=== PATIENT | female | born 1945 | race Caucasian/White ===

== ENCOUNTER 2018-01-28 08:39 | Emergency (ER) | payer MEDICARE, BC ==
[2018-01-28 09:57] LABS: VENOUS BLOOD BASE EXCESS -0.8 mmol/L; VENOUS BLOOD HCO3 26.2 mmol/L (20-32); VENOUS BLOOD PCO2 53.2 mmHg (35-63); VENOUS BLOOD PH 7.31 (7.30-7.42)
[2018-01-28 09:59] LABS: HEMATOCRIT 38.4 % (36.0-47.0); HEMOGLOBIN 12.7 g/dL (12.0-15.5); MEAN CORPUSCULAR HEMOGLOBIN 29.4 pg (27.0-33.4); MEAN CORPUSCULAR VOLUME 89 fl (80-97); RED BLOOD COUNT 4.31 10^6/uL (3.72-5.28); WHITE BLOOD COUNT 9.2 10^3/uL (4.0-10.5)
[2018-01-28 10:00] LABS: ABSOLUTE LYMPHOCYTES (AUTO) 0.7 10^3/uL (0.5-4.7); ABSOLUTE MONOCYTES (AUTO) 0.5 10^3/uL (0.1-1.4); ABSOLUTE NEUT (AUTO) 7.9 10^3/uL (1.7-8.2); BASOPHILS % (AUTO) 0.4 % (0-2); EOSINOPHILS % (AUTO) 0.2 % (0-6); LYMPHOCYTES % (AUTO) 7.2 % (13-45); MONOCYTES % (AUTO) 5.6 % (3-13); PLATELET COUNT 291 10^3/uL (150-450); RED CELL DISTRIBUTION WIDTH 14.1 % (11.5-14.0); SEGMENTED NEUTROPHILS % (AUTO) 86.6 % (42-78); TOTAL CELLS COUNTED % (AUTO) 100 %
[2018-01-28 10:16] LABS: ALANINE AMINOTRANSFERASE 30 U/L (9-52); ALBUMIN 4.2 g/dL (3.5-5.0); ALKALINE PHOSPHATASE 126 U/L (38-126); ANION GAP 13 (5-19); ASPARTATE AMINO TRANSFERASE 23 U/L (14-36); BILIRUBIN,DIRECT 0.3 mg/dL (0.0-0.4); BILIRUBIN,TOTAL 0.8 mg/dL (0.2-1.3); BLOOD UREA NITROGEN 12 mg/dL (7-20); CALCIUM 9.1 mg/dL (8.4-10.2); CARBON DIOXIDE 26 mmol/L (22-30); CHLORIDE 108 mmol/L (98-107); CREATINE KINASE 102 U/L (30-135); GLUCOSE 131 mg/dL (75-110); POTASSIUM 4.6 mmol/L (3.6-5.0); SODIUM 146.5 mmol/L (137-145); TOTAL PROTEIN 7.6 g/dL (6.3-8.2)
[2018-01-28 10:28] LABS: CREATINE KINASE MB 2.03 ng/mL (<4.55); NT PRO BNP 451 pg/mL (5-900)
[2018-01-28 10:29] LABS: TROPONIN I < 0.012 ng/mL
[2018-01-28 10:56] LABS: APPEARANCE,URINE CLEAR; BILIRUBIN,URINE NEGATIVE (NEGATIVE); COLOR,URINE YELLOW; GLUCOSE, URINE NEGATIVE (NEGATIVE); KETONES,URINE NEGATIVE (NEGATIVE); LEUKOCYTE ESTERASE,URINE NEGATIVE (NEGATIVE); NITRITE,URINE NEGATIVE (NEGATIVE); PROTEIN,URINE 100 mg/dL (NEGATIVE); URINE SPECIFIC GRAVITY 1.009; UROBILINOGEN,URINE NEGATIVE mg/dL (<2.0)
--- NOTE | 2018-01-28 11:06 | RADIOLOGY REPORT (SQ) ---
EXAM DESCRIPTION: CTA CHEST COMPLETED DATE/TIME: 01/28/2018 10:50 am REASON FOR STUDY: SOB, PE protocol COMPARISON: None. TECHNIQUE: CT scan of the chest performed using helical scanning technique with dynamic intravenous contrast injection. Images reviewed with lung, soft tissue and bone windows. Reconstructed coronal and sagittal MPR images reviewed. Additional 3 dimensional post-processing performed to develop Maximal Intensity Projection images (MO P). All images stored on PACS. All CT scanners at this facility use dose modulation, iterative reconstruction, and/or weight based d osing when appropriate to reduce radiation dose to as low as reasonably achievable (ALARA). [facility]: Dose Right [facility]: CareDose [facility]: Dose Right [facility]: Teradose 4D [facility]: Pathogenetix CONTRAST TYPE AND DOSE: contrast/concentration: Isovue 370.00 mg/ml; Total Contrast Delivered: 81.0 ml; Total Saline Delivered: 85.8 ml Contrast bolus adequate for pulmonary arteries and aorta. RENAL FUNCTION: GFR > 60. RADIATION DOSE: CT Rad equipment meets quality standard of care and radiation dose reduction techniq ues were employed. CTDIvol: 13.2 - 32.1 mGy. DLP: 1141 mGy-cm. . LIMITATIONS: None. FINDINGS: LUNGS AND PLEURA: Mild hazy ground-glass opacities upper and lower lobes. Mild paraseptal emphysema. Small bilateral pleural effusions. Faint scattered subcentimeter nodules are also sugge sted, most numerous in the lower lobes, subpleural. Largest measure just under 7 mm. Several calcif ied nodules also noted. Mild dependent subsegmental atelectasis bilaterally. AORTA AND GREAT VESSELS: No aneurysm. Contrast bolus not optimized for the aorta. HEART: Marked coronary calcification. No pericardial effusion. PULMONARY ARTERIES: No emboli visualized in the main pulmonary arteries or the segmental branches. HILAR AND MEDIASTINAL STRUCTURES: Small mediastinal and hilar nodes, many of which are calcified. Co nsistent with previous granulomatous disease. HARDWARE: None in the chest. UPPER ABDOMEN: Calcified granulomas in the spleen. No upper abdominal mass. THYROID AND OTHER SOFT TISSUES: No masses. No adenopathy. BONES: Osteopenia and spondylosis. 3D MIPS: Confirm above findings. OTHER: No other significant finding. IMPRESSION: 1. No pulmonary embolus. 2. Suspect mild CHF. Bilateral effusions with hazy mild philip ma in the lungs. 3. Small nodules. Patient appears to have had previous granulomatous disease whic h may explain this. Surveillance followup imaging over time may prove helpful once the patient is no longer acutely ill. FLEISCHNER CRITERIA FOR FOLLOW-UP OF PULMONARY NODULES Incidentally detected new nodules in persons 35 or older. HIGH RISK: History of smoking or other known risk factors. 6-8mm multiple solid nodules: LOW RISK: CT 3-6 mo; then consider CT 18-24 mo. HIGH RISK: CT 3-6 mo; t hen CT 18-24 mo. COMMENT: Quality ID # [id number]: Final reports with documentation of one or more dose reduction techniques (e.g., Automated exposure control, adjustment of the mA and/or kV according to patient size, use of iterative reconstruction technique) TECHNICAL DOCUMENTATION: JOB ID: [id number] [employer] All Rights Reserved Reading location - IP/workstation name: [email or web address]
[2018-01-28] MEDS ORDERED: FUROSEMIDE INJ/PF 40 MG/4 ML SDV IV ONE (12:17)
--- NOTE | 2018-01-28 12:35 | ER Document Report ---
ED General - General Chief Complaint: Shortness Of Breath Stated Complaint: SHORTNESS OF BREATH Time Seen by Provider: 01/28/18 09:29 TRAVEL OUTSIDE OF THE [place] IN LAST 30 DAYS: No - HPI Notes: 73-year-old female presents to the ER complaining of difficulty breathing. States she has been having some exertional dyspnea over the last several days. She is visiting from [facility]. [place] on [place]. She states she has been more more short of breath especially walking up the stairs of the beach house. Says when she rests she feels fine. She also been eating like she has been on vacation. She has not been watching her diet. The patient complains of difficulty breathing no chest pain. Upon walking more than several steps he becomes very short of breath and has to rest and then has done fine. She denies any fever chills sore throat she has had a nonproductive cough she has noticed that her ankles have been swelling a little bit. She does not a history of CHF. However she has not been treated for this in a while. - Related Data Allergies/Adverse Reactions: Penicillins Allergy (Verified 01/28/18 08:45) Past Medical History - Social History Smoking Status: Former Smoker Frequency of alcohol use: None Drug Abuse: None Family History: None Patient has suicidal ideation: No Patient has homicidal ideation: No Renal/ Medical History: Denies: Hx Peritoneal Dialysis Review of Systems - Review of Systems Constitutional: denies: Chills, Fever Cardiovascular: Dyspnea, Edema. denies: Chest pain Respiratory: Cough, Short of breath. denies: Hurts to breathe, Hemoptysis, Wheezing Gastrointestinal: denies: Nausea, Vomiting Musculoskeletal: Ankle swelling -: Yes All other systems reviewed and negative Physical Exam - Vital signs Vitals: Temp Pulse Resp BP Pulse Ox 97.7 F 102 H 28 H 191/79 H 93 01/28/18 08:46 01/28/18 08:46 01/28/18 08:46 01/28/18 08:46 01/28/18 08:46 - Notes Notes: GENERAL_APPEARANCE: well_nourished, alert, cooperative, no_acute_distress, no_ obvious_discomfort. VITALS: reviewed, see vital signs table. HEAD: no_swelling\tenderness on the head. EYES: PERRL, EOMI, conjunctiva_clear. NOSE: no_nasal_discharge. MOUTH: (-)decreased moisture. THROAT: no_throat_inflammation, no_airway_obstruction. no_lymphadenopathy NECK: supple, no_neck_tenderness, (-)thyromegaly. BACK: no_back_tenderness. CHEST_WALL: no_chest_tenderness. LUNGS: no_wheezing, basilar crackles, no_rhonchi, (-)accessory muscle use, good air exchange bilateral. HEART: normal_rate, normal_rhythm, normal_S1, normal_S2, (-)S3, (-)S4, no_ murmur, no_rub. ABDOMEN: normal_BS, soft, no_abd_tenderness, (-)guarding, (-)rebound, no_ organomegaly, no_abd_masses. EXTREMITIES: good pulses in all_extremities, no_swelling\tenderness in the extremities, 1+ symmetric_edema. SKIN: warm, dry, good_color, no_rash. MENTAL_STATUS: speech_clear, oriented_X_3, normal_affect, responds_ appropriately to questions. Course - Re-evaluation Re-evalutation: 01/28/18 12:33 73-year-old female asked to the ER complaining of difficulty breathing especially in any chest pain. CT of the chest did not find a PE or aortic dissection however there was pulmonary fusion and CHF. BNP is mildly elevated. 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 I advised her to slow down on high sodium containing foods while she is here on vacation especially seafood. This will likely make her fluid overload issue worse. She verbalized understanding and is comfortable going home she did initially tell story in triage that she had very low oxygen sats. We have not seen low sats here off oxygen whatsoever I gave her a trial off oxygen and had her walk around and again she stayed 95 and above. - Vital Signs Vital signs: Temp Pulse Resp BP Pulse Ox 97.7 F 102 H 28 H 191/79 H 93 01/28/18 08:46 08/01/18 08:46 01/28/18 08:46 01/28/18 08:46 01/28/18 08:46 - Laboratory Result Diagrams: 01/28/18 09:34 01/28/18 09:34 Laboratory results interpreted by me: 01/28/18 01/28/18 01/28/18 09:34 09:34 10:22 RDW 14.1 H Seg Neutrophils % 86.6 H Lymphocytes % 7.2 L Sodium 146.5 H Chloride 108 H Glucose 131 H Urine Protein 100 H Urine Blood SMALL H - EKG Interpretation by Me Rate: Normal Rhythm: NSR Voltage: Consistant with LVH Discharge - Discharge Clinical Impression: CHF (congestive heart failure) Qualifiers: Heart failure type: combined systolic and diastolic Heart failure chronicity: acute on chronic Qualified Code(s): I50.43 - Acute on chronic combined systolic (congestive) and diastolic (congestive) heart failure Condition: Good Disposition: HOME, SELF-CARE Instructions: Congestive Heart Failure ([facility]) Additional Instructions: Please follow-up with her hip hop performers in [place]. If repeat symptoms are worse return to the ER here. Prescriptions: Furosemide [Lasix 20 mg Tablet] 20 mg PO QAM #10 tablet Potassium Bicarbonate/Cit AC [Potassium 25 Meq Tab Eff] 25 meq PO DAILY #10 tablet.eff
[2018-01-28 13:15] VITALS: BP 113/79
--- NOTE | 2018-01-28 22:01 | EKG REPORT ---
SEVERITY:- ABNORMAL ECG - SINUS RHYTHM FIRST DEGREE AV BLOCK BORDERLINE T ABNORMALITIES, INFERIOR LEADS : Confirmed by: Chelo Cam 28-Jan-2018 22:01:03
== END 2018-01-28 13:17 | disposition home or self-care (01) ==
LOC: ER 08:39
DX: I50.43 Acute on chronic combined systolic (congestive) and diastolic (congestive) heart failure (principal); R06.02 Shortness of breath; Z87.891 Personal history of nicotine dependence; R05 Cough; Z88.0 Allergy status to penicillin; R60.9 Edema, unspecified
CPT/HCPCS: 93005; 99285; 96374; 36415; 82553; 82550; 85025; 80053; 81001; 84484; 82803; 83880; 71275; 93010; J1940